=== PATIENT | female | born 1975 | race Caucasian/White ===

== ENCOUNTER 2017-02-04 09:58 | Emergency (ER) | payer MEDICARE, OTHER ==
[~2017-02-04] VITALS: Ht 152.4 cm; Wt 45.4 kg
--- NOTE | 2017-02-04 12:27 | Diagnostic Imaging Report ---
EXAMINATION: Head CT HISTORY: Epilepsy, cerebral palsy, seizure COMPARISON: None available TECHNIQUE: Multidetector axial images were obtained without contrast from the foramen magnum to the vertex . The images were reconstructed using brain and bone algorithms. Thin section brain images were reformatted into coronal and sagittal planes. Intravenous contrast: None. Motion/streaking artifact limits the evaluation of the skull base and posterior cranial fossa. FINDINGS: Parenchyma: 1. Prominent cortical/subcortical encephalomalacia in the right pre and postcentral gyri, likely sequela from remote insult such infarction, trauma or infection. 2. Nonspecific hypodensity in the juxtacortical white matter of the right superior/anterior frontal lobe without significant mass effect or midline shift. 3. No mass or hemorrhage. No CT evidence of acute territorial vascular insult. Extra-axial spaces:No abnormal density. No extra-axial fluid collections Brain volume: Generalized supra and infratentorial volume loss, more than what is expected for patient's age. Ventricles: Mild ex vacuo dilatation. No hydrocephalus. Arteries: No density suggestive of thrombus. Dural sinuses: No abnormal density. Extra-axial spaces: No abnormal density. Foramen magnum: No mass, Chiari malformation, or basilar invagination. Sella: No obvious mass. Paranasal/mastoid sinuses: Imaged portions unremarkable. Skull/Scalp: No lytic or blastic lesions. No fractures. IMPRESSION: 1. No acute intracranial hemorrhage, mass, hydrocephalus or extra axial fluid collections. 2. Nonspecific hypodensity in the right frontal lobe white matter may represent chronic gliosis versus edema, comparison to prior studies to determine stability is recommended, otherwise a brain MRI is recommended to further evaluate. 3. Cortical encephalomalacia in the left pre and postcentral gyri, likely sequela from remote insult. 4. Moderate generalized brain volume loss, more than what is expected for age. Signed by: Dr. Concepcion Ag M.D. on 02/04/2017 12:23 PM
[2017-02-04 12:39] LABS: BASOPHILS % 0.5 % (0.0-1.0); EOSINOPHILS # (AUTO) 0.2 (0.0-0.4); EOSINOPHILS % 2.1 % (0.0-6.0); HEMATOCRIT 40.6 % (34.2-44.1); HEMOGLOBIN 13.3 g/dL (12.0-16.0); LYMPHOCYTES # (AUTO) 1.9 (1.0-3.2); LYMPHOCYTES % 26.4 % (18.0-39.1); MEAN CORPUSCULAR HEMOGLOBIN 32.7 pg (28-32); MEAN CORPUSCULAR HGB CONC 32.8 g/dL (31-35); MEAN CORPUSCULAR VOLUME 99.8 fL (81-99); MONOCYTES # (AUTO) 0.6 (0.2-0.8); MONOCYTES % 8.5 % (4.4-11.3); NEUTROPHILS # (AUTO) 4.6 (2.1-6.9); NEUTROPHILS % 62.4 % (38.7-80.0); PLATELET COUNT 202 x10e3/uL (140-360); RED BLOOD COUNT 4.07 x10e6/uL (3.6-5.1); RED CELL DISTRIBUTION WIDTH 14.6 % (11.7-14.4)
[2017-02-04 13:01] LABS: ALANINE AMINOTRANSFERASE 39 IU/L (0-55); ALBUMIN/GLOBULIN RATIO 0.7 (0.8-2.0); ALKALINE PHOSPHATASE 97 IU/L (40-150); BLOOD UREA NITROGEN 24 mg/dL (7-26); BUN/CREATININE RATIO 38 (6-25); CALCIUM 8.8 mg/dL (8.4-10.2); CARBON DIOXIDE 32 mmol/L (22-29); CHLORIDE 102 mmol/L (98-107); CREATININE, SERUM 0.63 mg/dL (0.57-1.11); EST GLOMERULAR FILTRATION RATE > 60 ML/MIN (60-); GLUCOSE 67 mg/dL (74-118); SODIUM 139 mmol/L (136-145)
[2017-02-04] MEDS ORDERED: SODIUM CHLORIDE 0.9% IV SCH (14:30)
[2017-02-04] MEDS ORDERED: VALPROATE SOD IV SCH (14:30)
[2017-02-04] MEDS ORDERED: HALOPERIDOL 5 MG TAB PO ONE (15:30)
[2017-02-04] MEDS ORDERED: HALOPERIDOL LACTATE 5 MG/ML VIAL IM ONE (15:45)
[2017-02-04] MEDS ORDERED: HALOPERIDOL LACTATE 5 MG/ML VIAL ONE (15:48)
== END 2017-02-04 15:14 | disposition home or self-care (01) ==
LOC: ER 09:58
DX: G40.309 Generalized idiopathic epilepsy and epileptic syndromes, not intractable, without status epilepticus (principal); R47.01 Aphasia; F03.90 Unspecified dementia, unspecified severity, without behavioral disturbance, psychotic disturbance, mood disturbance, and anxiety; F20.9 Schizophrenia, unspecified
CPT/HCPCS: 36415; 70450; 80053; 80164; 85025; 99284; J1630

== ENCOUNTER 2017-03-05 13:01 | Observation (INO) | payer MEDICARE, OTHER ==
[~2017-03-05] VITALS: Ht 152.4 cm; Wt 40.0 kg
[2017-03-05] MEDS ORDERED: LIDOCAINE HCL 1% LOCAL INJ 20 ML VIAL INJ STA (14:18)
[2017-03-05 15:14] LABS: BASOPHILS # (AUTO) 0.1 (0.0-0.1); BASOPHILS % 0.6 % (0.0-1.0); EOSINOPHILS # (AUTO) 0.2 (0.0-0.4); EOSINOPHILS % 2.2 % (0.0-6.0); HEMATOCRIT 44.4 % (34.2-44.1); HEMOGLOBIN 13.8 g/dL (12.0-16.0); LYMPHOCYTES # (AUTO) 2.3 (1.0-3.2); LYMPHOCYTES % 22.4 % (18.0-39.1); MEAN CORPUSCULAR HEMOGLOBIN 32.1 pg (28-32); MEAN CORPUSCULAR HGB CONC 31.1 g/dL (31-35); MEAN CORPUSCULAR VOLUME 103.3 fL (81-99); MONOCYTES # (AUTO) 0.9 (0.2-0.8); NEUTROPHILS # (AUTO) 6.8 (2.1-6.9); NEUTROPHILS % 65.7 % (38.7-80.0); PLATELET COUNT 259 x10e3/uL (140-360)
[2017-03-05 15:24] LABS: ALANINE AMINOTRANSFERASE 24 IU/L (0-55); ALBUMIN 2.9 g/dL (3.5-5.0); ALBUMIN/GLOBULIN RATIO 0.5 (0.8-2.0); ALKALINE PHOSPHATASE 108 IU/L (40-150); ANION GAP 12.2 mmol/L (8-16); BLOOD UREA NITROGEN 32 mg/dL (7-26); BUN/CREATININE RATIO 46 (6-25); CALCIUM 9.3 mg/dL (8.4-10.2); CARBON DIOXIDE 29 mmol/L (22-29); CHLORIDE 108 mmol/L (98-107); CREATININE, SERUM 0.69 mg/dL (0.57-1.11); EST GLOMERULAR FILTRATION RATE > 60 ML/MIN (60-); GLUCOSE 70 mg/dL (74-118); POTASSIUM 4.2 mmol/L (3.5-5.1); SODIUM 145 mmol/L (136-145)
[2017-03-05 15:39] LABS: INR 0.97; PROTHROMBIN TIME 13.4 seconds (11.9-14.5)
[2017-03-05 15:40] LABS: PARTIAL THROMBOPLASTIN TIME 34.5 seconds (23.8-35.5)
[2017-03-05] MEDS ORDERED: SODIUM CHLORIDE FLUSH 10 ML SYR INJ PRN (15:45)
--- NOTE | 2017-03-05 16:34 | Diagnostic Imaging Report ---
PROCEDURE:X-RAY PELVIS, AP VIEW COMPARISON:None. INDICATIONS:Fall FINDINGS: Limited exam due to overlying artifact and positioning. Abnormal appearance of the bilateral pubic bones with suboptimal visualization of the superior pubic rami, therefore fracture cannot be excluded. No apparent femoral neck fracture. The sacrum is obscured by rectal contents.. CONCLUSION: Limited exam. Consider further evaluation with CT pelvis without contrast. Naman Miller M.D. Dictated by: Naman Miller M.D. on 03/05/2017 at 16:42 Electronically approved by: Naman Miller M.D. on 03/05/2017 at 16:42
--- NOTE | 2017-03-05 16:37 | Diagnostic Imaging Report ---
PROCEDURE: A single AP view of the chest. COMPARISON: None. INDICATIONS: FALL, TRAUMA FINDINGS: Lines/tubes: None. Lungs: Bilateral suboptimal inspiration. Increased density throughout the lungs bilaterally may be related to technique. Patchy density in the left lung base associated with elevation of the left hemidiaphragm suggestive of subsegmental atelectasis. Pleura: There is no pleural effusion or pneumothorax. Heart and mediastinum: The heart and the mediastinum are unremarkable. Deformity of the left lateral rib cage particularly centered at the eighth rib may reflect nondisplaced fracture. IMPRESSION: 1. Probable nondisplaced fracture of theleft lateral eighth rib. Left basilar subsegmental atelectasis may be due to patient respiration due to rib fracture in the proper clinical setting. Naman Miller M.D. Dictated by: Naman Miller M.D. on 03/05/2017 at 16:45 Electronically approved by: Naman Miller M.D. on 03/05/2017 at 16:45
--- NOTE | 2017-03-05 16:42 | Diagnostic Imaging Report ---
Exam: Head CT without contrast History: Altered mental status and fall at home Comparison studies: Head CT 02/04/2017. Technique: Axial images were obtained from the skull base to the vertex. Coronal and sagittal images reconstructed from the axial data. Intravenous contrast: None Findings: Image quality is significantly degraded due to motion artifact. Scalp: No abnormalities. Bones: No fractures, blastic or lytic lesions. Brain sulci: Prominent. Ventricles: Stable moderate dilatation of the lateral ventricles with involvement of the temporal horns. This is slightly disproportionate to degree of sulcal widening. The callosal angle is however normal and measures 115 degrees. The findings are most likely related to preferential central volume loss rather than a communicating hydrocephalus. Extra-axial spaces: No masses, no fluid collection. Parenchyma: There is stable encephalomalacia in the right medial anterior frontal lobe and right pre and postcentral gyrus. No acute large cortical infarct. No intracranial hemorrhage or mass effect. Sellar/suprasellar region: Partial empty sella. Craniocervical junction: Patent foramen magnum. No Chiari one malformation. IMPRESSION: 1. Limited examination due to significant motion artifact. 2. Despite the limitation, no gross acute intracranial abnormality. 3. Unchanged chronic encephalomalacia in right frontal lobe, right pre and postcentral gyrus may be related to prior vascular insult, trauma or infectious/inflammatory process. 4. Generalized moderate cerebral volume loss which is greater than expected for age. Preliminary report was provided by neuroradiology fellow, Dr.Thach Irma MD on 03/05/2017 4:42 PM. I have reviewed the images and agree with the findings in the preliminary report. Signed by: Dr. Fely Hutchison M.D. on 03/05/2017 7:36 PM
--- NOTE | 2017-03-05 16:47 | Diagnostic Imaging Report ---
History: Fall Comparison studies: None Technique: Axial images were obtained through the cervical region. Coronal and sagittal images reconstructed from the axial data. Intravenous contrast: None Findings: Image quality is degraded due to suboptimal positioning. Atlantoaxial articulation: Intact Alignment: Normal lordosis No scoliosis. Cervicomedullary junction: No abnormalities. Patent foramen magnum. Soft tissues: No gross abnormalities. Vertebrae: No fractures, neoplasm or infection. Incidental: Mild emphysematous changes in the lung apices and subpleural blebs. Degenerative changes: Mild multilevel cervical spine spondylosis without spinal canal stenosis. Prominent anterior osteophytes from C5 to T1. C2-C3: Posterior disc osteophyte complex without canal stenosis. C3-C4: Mild left foraminal stenosis due to facet and uncovertebral arthrosis. C4-C5: Mild right foraminal stenosis due to facet and uncovertebral arthrosis. C5-C6: Posterior disc osteophyte complex without canal stenosis. Mild right foraminal stenosis due to uncovertebral arthrosis. IMPRESSION: 1. No acute fracture or subluxation demonstrated in the cervical spine. 2. Ligament, spinal cord and or vascular abnormalities cannot be excluded on the basis of this examination. Preliminary report was provided by neuroradiology fellow, Dr.Thach Irma MD on 03/05/2017 4:47 PM. Signed by: Dr. Fely Hutchison M.D. on 03/05/2017 7:41 PM
[2017-03-05 17:38] VITALS: BP 100/70
[2017-03-05 17:39] VITALS: BP 100/70
[2017-03-05] MEDS ORDERED: BACLOFEN10 MG PEG (18:16)
[2017-03-05] MEDS ORDERED: GUAIFENESI100 MG/5 M PEG (18:16)
[2017-03-05] MEDS ORDERED: ZYPREXA5 MG PEG ×3 (18:16)
[2017-03-05] MEDS ORDERED: ACETAMINOPHEN325 M1 PEG (18:16)
[2017-03-05] MEDS ORDERED: ZOFRAN ODT4 MG PEG (18:16)
[2017-03-05] MEDS ORDERED: CLONAZEPAM0.5 MG PEG (18:16)
[2017-03-05] MEDS ORDERED: ULTRAM50 MG PEG (18:16)
[2017-03-05] MEDS ORDERED: DIVALPROEX SOD125 MG PEG (18:16)
[2017-03-05] MEDS ORDERED: LORAZEPAM1 MG PEG (18:16)
[2017-03-05] MEDS ORDERED: MIDODRINE HCL2.5 MG PO (18:16)
[2017-03-05] MEDS ORDERED: LORAZEPAM INJ 2 MG/ML VIAL IV ONE (18:30)
[2017-03-05] MEDS ORDERED: GUAIFENESIN 200 MG/10 ML UDC PEG PRN (19:00)
[2017-03-05] MEDS ORDERED: ONDANSETRON HCL 4 MG ORAL DISINTEGRATING TAB PEG PRN (19:00)
[2017-03-05] MEDS ORDERED: OLANZAPINE 5 MG TAB PEG PRN (19:00)
[2017-03-05] MEDS ORDERED: LORAZEPAM 1 MG TAB PEG PRN (19:00)
[2017-03-05] MEDS ORDERED: BACLOFEN 10 MG TAB PEG SCH (19:00)
[2017-03-05] MEDS ORDERED: ACETAMINOPHEN 325 MG/10 ML UDC PEG PRN (19:15)
--- NOTE | 2017-03-05 19:23 | Diagnostic Imaging Report ---
EXAM: CT Abdomen and Pelvis WITHOUT contrast INDICATION: Sacral hematoma COMPARISON: None. TECHNIQUE: Abdomen and Pelvis was scanned utilizing a multidetector helical scanner without the use of IV contrast. Coronal and sagittal reformations were obtained. Limitations: Significant patient motion. Additionally spray artifact from arms over abdomen. IV CONTRAST: None COMPLICATIONS: None RADIATION DOSE: Total DLP: 232 mGy*cm Estimated effective dose: (DLP x 0.015 x size factor) mSv CTDIvol has been reviewed. It is below the limits set by the Radiation Protocol Committee (RPC). FINDINGS: Abdomen: Lung Bases: Septal thickening partially visualized left lung base. Solid Organs: Calcified gallstones present. Nonenhanced images of solid organs grossly unremarkable, but poorly evaluated. Upper GI Tract: Percutaneous gastrostomy tube. No distinct small bowel obstructive changes. Vascularity: No aortic aneurysm. Lymph Nodes: Not adequately evaluated. Other: None. Pelvis: Bladder: Moderately distended. Other: Uterus/adnexa suboptimally evaluated nonenhanced CT. Colon: Moderate stool. Colon in adequately evaluated due to significant motion. Bones: Mottled irregular appearance right superior and inferior pubic mild presumed sequela of prior trauma. Prominent osteophytes acetabulum bilaterally. Soft tissues: Evaluation significantly limited due to motion and lack of IV contrast. In the soft tissues overlying the sacrum there is a 55 mm transverse x 38 mm AP x 91 mm craniocaudal fluid collection that appears to have a thickened wall. IMPRESSION: 1. 55 x 38 x 91 mm fluid collection within the soft tissues overlying the sacrum with thickened wall. While finding may correspond with hematoma per clinical history, abscess would have a similar appearance. Vertical and laboratory correlation recommended. 2. Cholelithiasis. 3. Within significant limitations of exam as detailed above, no other distinct acute intra-abdominal findings. Signed by: Dr. Willis Laird MD on 03/05/2017 7:19 PM
[2017-03-05 20:00] VITALS: BP 92/53
[2017-03-05] MEDS ORDERED: VANCOMYCIN 1GM/NS 250 ML 250 ML IV SCH (20:00)
[2017-03-05] MEDS ORDERED: SODIUM CHLORIDE 0.9% 250ML 250 ML ONE (20:15)
[2017-03-05] MEDS ORDERED: CLONAZEPAM 0.5 MG TAB PEG SCH (21:00)
[2017-03-05] MEDS ORDERED: TRAMADOL HCL 50 MG TAB PEG SCH (21:00)
[2017-03-05] MEDS ORDERED: OLANZAPINE 5 MG TAB PEG SCH (21:00)
[2017-03-05] MEDS ORDERED: VALPROATE 250MG/5ML ORAL LIQ 5ml PEG SCH (21:00)
[2017-03-05 22:27] VITALS: BP 92/53
[2017-03-06] VITALS: BP 101/61
[2017-03-06] MEDS ORDERED: MIDODRINE HCL 5 MG TABLET PO SCH (06:00)
[2017-03-06 06:40] VITALS: BP 97/62
[2017-03-06 06:47] LABS: BASOPHILS # (AUTO) 0.1 (0.0-0.1); BASOPHILS % 0.8 % (0.0-1.0); EOSINOPHILS # (AUTO) 0.3 (0.0-0.4); EOSINOPHILS % 4.4 % (0.0-6.0); HEMATOCRIT 39.1 % (34.2-44.1); LYMPHOCYTES # (AUTO) 1.8 (1.0-3.2); LYMPHOCYTES % 25.2 % (18.0-39.1); MEAN CORPUSCULAR HEMOGLOBIN 31.6 pg (28-32); MEAN CORPUSCULAR HGB CONC 30.7 g/dL (31-35); MEAN CORPUSCULAR VOLUME 102.9 fL (81-99); MONOCYTES % 14.2 % (4.4-11.3); NEUTROPHILS # (AUTO) 3.9 (2.1-6.9); NEUTROPHILS % 55.3 % (38.7-80.0); PLATELET COUNT 271 x10e3/uL (140-360); RED CELL DISTRIBUTION WIDTH 13.8 % (11.7-14.4)
[2017-03-06 07:04] LABS: INR 0.99; PROTHROMBIN TIME 13.6 seconds (11.9-14.5)
[2017-03-06 07:05] LABS: PARTIAL THROMBOPLASTIN TIME 32.9 seconds (23.8-35.5)
[2017-03-06 07:09] LABS: BLOOD UREA NITROGEN 32 mg/dL (7-26); BUN/CREATININE RATIO 50 (6-25); CALCIUM 8.6 mg/dL (8.4-10.2); CARBON DIOXIDE 29 mmol/L (22-29); CHLORIDE 109 mmol/L (98-107); CREATININE, SERUM 0.64 mg/dL (0.57-1.11); EST GLOMERULAR FILTRATION RATE > 60 ML/MIN (60-); GLUCOSE 70 mg/dL (74-118); SODIUM 145 mmol/L (136-145)
[2017-03-06 08:00] VITALS: BP 90/59
[2017-03-06] MEDS ORDERED: OLANZAPINE 5 MG TAB PEG SCH (09:00)
[2017-03-06 12:00] VITALS: BP 125/72
[2017-03-06] MEDS ORDERED: HALOPERIDOL LACTATE 5 MG/ML VIAL IV PRN (15:15)
[2017-03-06] MEDS ORDERED: HALOPERIDOL LACTATE 5 MG/ML VIAL IV ONE (15:45)
--- NOTE | 2017-03-06 15:55 | History and Physical ---
ADDENDUM She has as I said before an unusual location for a PEG tube. I talked with , the nurse practitioner who has seen the patient in the custodial. Apparently, the tube was a PEG tube and it was being used for feeding and medications. We ordered a KUB and the KUB is pending. We will start her on vancomycin 1 g IV daily, Zosyn 3.375 g IVBP q.6 h. to cover the possibility of any intra-abdominal infection, because that particular PEG tube is drainage urine. We called Dr. Tomasz Khalil, gastroenterology to check on the location of the PEG tube to see if it is in the right location. Will also consulted Dr. Gonsales, urologist because the tube is draining fluid that looks like urine. We have to make sure there is not any fistula to the bladder. We are going to wait on the KUB report. We are going to hold the transfer to a custodial until we see the location of that particularly and location of the PEG tube and then go from there. The patient has no fever so far. White blood count is normal. Job#: [id number] TANVIR
--- NOTE | 2017-03-06 16:00 | Diagnostic Imaging Report ---
PROCEDURE:X-RAY ABDOMEN - KUB COMPARISON:None. INDICATIONS:PEG TUBE PLACEMENT FINDINGS: Exam is limited by patient's altered mental status and inability to stay still. A radiopaque catheter is noted in the left abdomen, with distal tip projecting in the expected region of the stomach antrum/pylorus, likely representing PEG tube. No air-filled, nondilated loops of bowel. No acute bony abnormalities. No abdominal calcifications. CONCLUSION: PEG tube has distal tip projecting in the expected region of the stomach antrum/pylorus. Kalia Macias M.D. Dictated by: Kalia Macias M.D. on 03/06/2017 at 16:09 Electronically approved by: Kalia Macias M.D. on 03/06/2017 at 16:09
--- NOTE | 2017-03-06 16:14 | History and Physical ---
HISTORY OF PRESENT ILLNESS: A 41-year-old female detention resident with a past medical history positive for traumatic brain injury, bedridden, and she has a PEG tube. She was sent from a detention because she was having a growing mass in the back of her pelvis area and they were concerned for infection, abscess, et cetera. Incisional drainage done. Apparently she had a hematoma. Patient was started on IV vancomycin empirically. Wound cultures are still pending. REVIEW OF SYSTEMS: The patient is unable to communicate. She is very agitated. PAST MEDICAL HISTORY: Traumatic brain injury, dysphagia. SOCIAL HISTORY: She lives in a detention. We do not know if she smokes or drinks. PHYSICAL EXAMINATION HEART: Shows regular rhythm. Normal S1 and S2 sounds. LUNGS: Clear bilaterally. ABDOMEN: Soft. She has a PEG tube in place with some redness around the PEG tube. EXTREMITIES: Show contracture in upper and lower extremities. VITAL SIGNS: Blood pressure is 125/72, temperature 98.9, heart rate 102 per minute, respiratory rate is 18 per minute. We have a CBC with a white blood count 7.10, hemoglobin 12.0, hematocrit 39.1, platelet count 271,000. On the BMP: Sodium 145, potassium 4.0, chloride 109, CO2 29, BUN 32, creatinine 0.64, glucose is 70, calcium 8.6. AST is 31, ALT 24, alkaline phosphatase 108, total protein 9.0, albumin 2.9, globulin 6.1. Albumin/globulin ratio 0.5. We also had a pelvis x-ray done which is a limited exam. No other opinion on that from the radiologist. On a chest x-ray, probably nondisplaced fracture on the lateral 8th rib, passive basilar subsegmental atelectasis may be due to respiration due to rib fracture in the proper clinical setting ( ) chest x-ray. Then we have a CT of the cervical spine which showed no acute fracture or subluxation ( ) cervical spine. Ligament, spinal cord or vascular abnormalities cannot be excluded on the basis of this examination. Then we have CAT scan of the head which showed limited examination due to significant motion artefact. Despite limitation, no gross acute intracranial abnormality. Also, we had unchanged chronic encephalomalacia in the right frontal lobe, right pre- and post-central gyrus may be related to prior vascular insult, trauma, infectious or inflammatory process. Generalized moderate cerebral volume loss which is greater than expected for age. Then we have a CT of the abdomen and pelvis without contrast which showed 55 x 38+ x 91 mm fluid collection within the soft tissues underlying the sacrum with a thickened wall ( ) hematoma. Per clinical histories, abscess will have a similar appearance ( ) and laboratory correlation are recommended. She has also gallstones but no cholecystitis. No other intra-abdominal findings also. PLAN OF TREATMENT: So, patient is going to be transferred to a detention today. Dr. Lucas Treadwell, surgeon, recommended for her to be transferred to a detention. He did not see any evidence of any abscess to require drainage. We are going to start her on doxycycline 100 mg twice a day for 10 days. She was originally on vancomycin 1 g daily because of some possible cellulitis around the hematoma, and also the PEG tube had some redness most likely secondary to cellulitis. So, doxycycline will continue at least for 10 days at the detention. The rest of the medications are going to be the following: Tylenol 650 mg q.6 h. as needed. Baclofen 10 mg q.12 h. Clonazepam 0.5 mg 3 times a day. Doxycycline 100 mg twice a day for 10 days. Guaifenesin 200 mL q.6 h. as needed. Lorazepam has been discontinued. Continue with midodrine 10 mg q.8 h. for orthostatic hypotension. She is taking Zyprexa 2.5 mg q.6 h. as needed for agitation and 5 mg at bedtime and 10 mg in the morningtime. Zofran 4 mg via the PEG as needed for nausea and vomiting. Tramadol 50 mg 3 times a day as needed and ( ) mg 3 times a day. Job#: [id number] EV
--- NOTE | 2017-03-06 16:17 | Discharge Summary ---
This is a 41-year-old female who has a past medical history positive for traumatic brain injury, seizure disorder, confusion. She lives in a custodial. She has a PEG tube, also. She came to the hospital originally because of a groin mass in the pelvic area. She underwent incision and drainage of the mass. Blood came out. It looked like it was a hematoma. X-ray showed no evidence of fracture. We did a CT of the abdomen and pelvis, pelvis x-ray, cervical spine x-ray, chest x-ray. She only had a fracture of the left rib cage, but no fractures in any other areas. The patient was started empirically on vancomycin. We are going to switch her to doxycycline p.o. because of cellulitis around the PEG tube and also possible infection of the hematoma. The patient is going to be transferred to the custodial today. On the physical exam, the heart shows regular rhythm. Normal S1, S2 sounds. Lungs are clear bilaterally. Abdomen is soft. PEG tube in place. She has also a hematoma on the back of the pelvic area close to the sacral area. FINAL IMPRESSION 1. Pelvic hematoma with mild cellulitis. 2. Dysphagia. 3. Acute renal failure. 4. Percutaneous endoscopic gastrostomy tube cellulitis. 5. Traumatic brain injury. 6. Seizure disorder. 7. Agitation. PLAN OF TREATMENT: Continue current medications already dictated in my history and physical. Patient is going to be transferred back to the custodial. Dr. Lucas Treadwell saw the patient from a surgical point of view. He recommended for her to be discharged since there was no evidence of any surgical conditions. THOM CRAIG MD Job#: [id number]
--- NOTE | 2017-03-06 16:44 | Discharge Summary ---
ADDENDUM: Looking at PEG tube placement, it looks like there has been a Lloyd catheter placed instead of a PEG tube. We are going to ask the assistant sales center manager, Dr. Chilel, to replace the PEG tube. KUB has been ordered and report is pending. So, we are going to put the discharge back to the long-term on hold until the PEG tube is replaced with a size PEG tube before she goes back to the long-term. There is also some redness around the PEG tube. The patient has been started on antibiotics. THOM CRAIG MD Job#: [id number] GH
[2017-03-06] MEDS ORDERED: DOXYCYCLINE HYCLATE TABLET 100 MG TAB PO SCH (17:00)
[2017-03-06] MEDS ORDERED: PIPER-TAZ 3.375 GM 50 ML IV SCH (18:00)
--- NOTE | 2017-03-06 18:14 | Consultation ---
DATE OF CONSULTATION: GASTROENTEROLOGY CONSULTATION REASON FOR CONSULTATION: PEG malfunction. HISTORY OF PRESENT ILLNESS: Ms. Zavaleta is a 41-year-old woman who is known to me from previous occasions. She is PEG dependent. Her PEG tube was noted to be broken at the proximal region where the stop cock would be. KUB checked placement and in the anticipated region. She has chronic PEG. The existing PEG is receiving gastric contents. She does not seem to have any abdominal pain. There is some local excoriation. PAST MEDICAL HISTORY: Traumatic brain injury, dysphagia and PEG dependent. MEDICATIONS: Reviewed. Please see [facility] medication reconciliation form. ALLERGIES: REVIEWED. PLEASE SEE [facility] MEDICATION RECONCILIATION FORM. SOCIAL HISTORY: She is a intermediate resident. No known alcohol or tobacco. FAMILY HISTORY: Unknown. REVIEW OF SYSTEMS: Unable to obtain due to her mental status. PHYSICAL EXAMINATION GENERAL: She is alert, calm and nonverbal and thin. HEENT: Pupils equal, round and reactive to light. NECK: Supple. LUNGS: Clear. CARDIAC: S1 and S2. ABDOMEN: Soft. Existing PEG tube with broken stop cock with gastric contents. Some excoriation around her skin. EXTREMITIES: No clubbing or cyanosis. She has right arm contractures. PSYCH: Calm now. Agitation. NEUROLOGIC: Awake but disoriented. Nonverbal. HEM/ONC: No bruising or adenopathy. Electronic health records reviewed for laboratory and radiologic studies, as well as history. ASSESSMENT 1. Dysphagia: Percutaneous endoscopic gastrostomy dependent. 2. Intra-abdominal fluid collection already evaluated by Dr. Treadwell. 3. Baseline altered mental status and dysphagia. 4. Percutaneous endoscopic gastrostomy malfunction with broken tip. PLAN: At the bedside, the existing 18-[place] replacement type balloon tube was deflated and removed. It was inspected and found to be otherwise intact aside from broken exterior tip. A new 18-[place] balloon type replacement tube was inserted in the existing fistula and passed into the gastric lumen easily. Gastric contents were retrieved. The internal bumper was filled with 6 mL of sterile saline as per directions. There was good return. At the current time, the PEG may be used for medications and feeding. I agree with continuing abdominal binder so that it is not pulled. I have no other plans for her. Therefore, she is otherwise stable for discharge and I agree with it. I discussed with the nursing staff. Thank you very much for asking me to see Ms. Zavaleta. Any questions or concerns please do not hesitate to contact me. Job#: [id number] RI
== END 2017-03-06 18:41 ==
LOC: ER 13:01 → ERHOLD 16:39 → MED/SURG 16:44
PROVIDERS: ADMIT Internal Medicine; ATTEND Internal Medicine
DX: S30.0XXA Contusion of lower back and pelvis, initial encounter (principal); L03.818 Cellulitis of other sites; K94.23 Gastrostomy malfunction; L03.311 Cellulitis of abdominal wall; N17.9 Acute kidney failure, unspecified; S06.9X0A Unspecified intracranial injury without loss of consciousness, initial encounter; R13.10 Dysphagia, unspecified; G40.909 Epilepsy, unspecified, not intractable, without status epilepticus; R18.8 Other ascites; F20.9 Schizophrenia, unspecified; F03.90 Unspecified dementia, unspecified severity, without behavioral disturbance, psychotic disturbance, mood disturbance, and anxiety; Z74.01 Bed confinement status; X58.XXXA Exposure to other specified factors, initial encounter; Z87.820 Personal history of traumatic brain injury
CPT/HCPCS: 10140; 36415 ×2; 43760; 70450; 71010; 72125; 72170; 74000; 74176; 80048; 80053; 80202; 85025 ×2; 85610 ×2; 85730 ×2; 87071; 87186; 87205; 99285; G0378 ×2; J1630; J2060; J2543; J3370; J7050

== ENCOUNTER 2017-05-01 11:58 | Emergency (ER) | payer OTHER ==
[~2017-05-01] VITALS: Ht 152.4 cm; Wt 39.9 kg
[~2017-05-01 11:58] MED LIST: ACETAMINOPHEN325 M1 PEG; BACLOFEN10 MG PEG; CLONAZEPAM0.5 MG PEG; DIVALPROEX SOD125 MG PEG; GUAIFENESI100 MG/5 M PEG; LORAZEPAM1 MG PEG; MIDODRINE HCL2.5 MG PO; ULTRAM50 MG PEG; ZOFRAN ODT4 MG PEG; ZYPREXA5 MG PEG
--- OUTSIDE RECORDS SUMMARY | 2017-05-01 12:01 | XMS REPORT ---
[facility] Address Unknown Phone Unavailable Care Team Providers Care Line Runner Name Role Phone THOM CRAIG Unavailable Unavailable KAYLA FRANCISCO Unavailable Unavailable SHAKA SWEENEY Unavailable Unavailable Problems This patient has no known problems. Allergies, Adverse Reactions, Alerts This patient has no known allergies or adverse reactions. Medications This patient has no known medications. Results Test Description Test Time Test Comments Text Results Atomic Results Result Comments ABDOMEN-1VIEW (KUB) [place] [address] Patient Name: MANJIT SHEFFIELD MR #: [id number] : 1975 Age/Sex: 41/F Req #: [id number] Adm Physician: THOM CRAIG MD Ordered by: THOM CRAIG MD Report #: [id number] Location: MED/SURG Room/Bed: [facility] Procedure: [id number] DX/ABDOMEN-1VIEW (KUB) Exam Date: 03/06/17 Exam Time: 1320 REPORT STATUS: Signed PROCEDURE: X-RAY ABDOMEN - KUB COMPARISON: None. INDICATIONS : PEG TUBE PLACEMENT FINDINGS: Exam is limited by patient's altered mental status and inability to stay still. A radiopaque catheter is noted in the left abdomen, with distal tip projecting in the expected region of the stomach antrum/pylorus, likely representing PEG tube. No air-filled , nondilated loops of bowel. No acute bony abnormalities. No abdominal calcifications. CONCLUSION: PEG tube has distal tip projecting in the expected region of the stomach antrum/pylorus. Kalia Farley M.D. Dictated by: Kalia Farley M.D. on 03/06/2017 at 16:09 Electronically approved by: Kalia Farley M.D. on 03/06/2017 at 16:09 Dictated By: KALIA FARLEY MD 08 Transcribed By: NILS on 03/06/17 160 COPY TO: THOM CRAIG MD CT ABDOMEN/PELVIS WO [place] [address] Patient Name: MANJIT SHEFFIELD MR #: [id number] : 1975 Age/Sex: 41/F Req #: [id number] Adm Physician: THOM RCAIG MD Ordered by: THOM CRAIG MD Report #: [id number] Location: MED/SURG Room/Bed: [facility] Procedure: [id number] CT/CT ABDOMEN/PELVIS WO Exam Date: 03/05/17 Exam Time: 1850 REPORT STATUS: Signed EXAM: CT Abdomen and Pelvis WITHOUT contrast INDICATION: Sacral hematoma COMPARISON: None. TECHNIQUE: Abdomen and Pelvis was scanned utilizing a multidetector helical scanner without the use of IV contrast. Coronal and sagittal reformations were obtained. Limitations: Significant patient motion. Additionally spray artifact from arms over abdomen. IV CONTRAST: None COMPLICATIONS : None RADIATION DOSE: Total DLP: 232 mGy*cm Estimated effective dose: (DLP x 0.015 x size factor) mSv CTDIvol has been reviewed. It is below the limits set by the Radiation Protocol Committee (RPC) . FINDINGS: Abdomen: Lung Bases: Septal thickening partially visualized left lung base. Solid Organs: Calcified gallstones present. Nonenhanced images of solid organs grossly unremarkable, but poorly evaluated. Upper GI Tract: Percutaneous gastrostomy tube. No distinct small bowel obstructive changes. Vascularity: No aortic aneurysm. Lymph Nodes: Not adequately evaluated. Other: None. Pelvis: Bladder: Moderately distended. Other: Uterus/adnexa suboptimally evaluated nonenhanced CT. Colon: Moderate stool. Colon in adequately evaluated due to significant motion. Bones: Mottled irregular appearance right superior and inferior pubic mild presumed sequela of prior trauma. Prominent osteophytes acetabulum bilaterally. Soft tissues: Evaluation significantly limited due to motion and lack of IV contrast. In the soft tissues overlying the sacrum there is a 55 mm transverse x 38 mm AP x 91 mm craniocaudal fluid collection that appears to have a thickened wall. IMPRESSION: 1. 55 x 38 x 91 mm fluid collection within the soft tissues overlying the sacrum with thickened wall. While finding may correspond with hematoma per clinical history, abscess would have a similar appearance. Vertical and laboratory correlation recommended. 2. Cholelithiasis. 3. Within significant limitations of exam as detailed above, no other distinct acute intra-abdominal findings. Signed by: Dr. Ibeth Laird MD on 03/05/2017 7:19 PM Dictated By: IBETH LAIRD MD 18 Transcribed By: MADHAV on 1918 COPY TO: THOM CRAIG MD CHEST [facility] (PORTABLE) [place] [address] Patient Name: MANJIT SHEFFIELD MR #: [id number] : 1975 Age/Sex: 41/F Req #: [id number] Adm Physician: Ordered by: JANNA ESPINOZA NP Report #: [id number] Location: ER Room/Bed: Procedure: [id number] DX/CHEST SINGLE (PORTABLE) Exam Date: 03/05/17 Exam Time: 1540 REPORT STATUS: Signed PROCEDURE: A single AP view of the chest. COMPARISON: None. INDICATIONS: FALL, TRAUMA FINDINGS: Lines/tubes: None. Lungs: Bilateral suboptimal inspiration. Increased density throughout the lungs bilaterally may be related to technique. Patchy density in the left lung base associated with elevation of the left hemidiaphragm suggestive of subsegmental atelectasis. Pleura: There is no pleural effusion or pneumothorax. Heart and mediastinum: The heart and the mediastinum are unremarkable. Deformity of the left lateral rib cage particularly centered at the eighth rib may reflect nondisplaced fracture. IMPRESSION: 1. Probable nondisplaced fracture of theleft lateral eighth rib. Left basilar subsegmental atelectasis may be due to patient respiration due to rib fracture in the proper clinical setting. Naman Adamson M.D. Dictated by: Naman Adamson M.D. on 03/05/2017 at 16:45 Electronically approved by: Naman Adamson M.D. on 03/05/2017 at 16: 45 Dictated By: MARIMAR ADAMSON MD, MD 44 Transcribed By: NILS on 03/05/171644 COPY TO: JANNA ESPINOZA NP CT BRAIN WO [place] [address] Patient Name: MANJIT SHEFFIELD MR #: [id number] : 1975 Age/Sex: 41/F Req #: [id number] Adm Physician: THOM CRAIG MD Ordered by: JANNA ESPINOZA NP Report #: [id number] Location: MED/SURG Room/Bed: [facility] ____ Procedure: [id number] CT/CT BRAIN WO Exam Date: 03/05/17 Exam Time: 1540 REPORT STATUS: Signed Exam: Head CT without contrast History: Altered mental status and fall at home Comparison studies: Head CT 02/04/2017. Technique: Axial images were obtained from the skull base to the vertex. Coronal and sagittal images reconstructed from the axial data. Intravenous contrast: None Findings: Image quality is significantly degraded due to motion artifact. Scalp: No abnormalities. Bones: No fractures, blastic or lytic lesions. Brain sulci: Prominent. Ventricles: Stable moderate dilatation of the lateral ventricles with involvement of the temporal horns. This is slightly disproportionate to degree of sulcal widening. The callosal angle is however normal and measures 115 degrees. The findings are most likely related to preferential central volume loss rather than a communicating hydrocephalus. Extra-axial spaces: No masses, no fluid collection. Parenchyma: There is stable encephalomalacia in the right medial anterior frontal lobe and right pre and postcentral gyrus. No acute large cortical infarct. No intracranial hemorrhage or mass effect. Sellar/suprasellar region: Partial empty sella. Craniocervical junction: Patent foramen magnum. No Chiari one malformation. IMPRESSION: 1. Limited examination due to significant motion artifact. 2. Despite the limitation, no gross acute intracranial abnormality. 3. Unchanged chronic encephalomalacia in right frontal lobe, right pre and postcentral gyrus may be related to prior vascular insult, trauma or infectious/inflammatory process. 4. Generalized moderate cerebral volume loss which is greater than expected for age. Preliminary report was provided by neuroradiology fellow, Dr.Thach Irma MD on 03/05/2017 4:42 PM. I have reviewed the images and agree with the findings in the preliminary report. Signed by: Dr. Fely Hutchison M.D. on 03/05/2017 7:36 PM Dictated By: FELY HUTCHISON MD 35 Transcribed By: MADHAV on 03/05 COPY TO: JANNA ESPINOZA NP CT CERVICAL SPINE WO [place] [address] Patient Name: MANJIT SHEFFIELD MR #: [id number] : 1975 Age/Sex: 41/F Req #: [id number] Adm Physician: THOM CRAIG MD Ordered by: JANNA ESPINOZA NP Report #: [id number] Location: MED/SURG Room/Bed: [facility] Procedure: [id number] CT/CT CERVICAL SPINE WO Exam Date: 03/05/17 Exam Time: 1540 REPORT STATUS: Signed History: Fall Comparison studies: None Technique: Axial images were obtained through the cervical region. Coronal and sagittal images reconstructed from the axial data. Intravenous contrast: None Findings: Image quality is degraded due to suboptimal positioning. Atlantoaxial articulation: Intact Alignment: Normal lordosis No scoliosis. Cervicomedullary junction: No abnormalities. Patent foramen magnum. Soft tissues: No gross abnormalities. Vertebrae: No fractures, neoplasm or infection. Incidental: Mild emphysematous changes in the lung apices and subpleural blebs. Degenerative changes: Mild multilevel cervical spine spondylosis without spinal canal stenosis. Prominent anterior osteophytes from C5 to T1. C2-C3: Posterior disc osteophyte complex without canal stenosis. C3-C4: Mild left foraminal stenosis due to facet and uncovertebral arthrosis. C4-C5: Mild right foraminal stenosis due to facet and uncovertebral arthrosis. C5-C6: Posterior disc osteophyte complex without canal stenosis. Mild right foraminal stenosis due to uncovertebral arthrosis. IMPRESSION: 1. No acute fracture or subluxation demonstrated in the cervical spine. 2. Ligament, spinal cord and or vascular abnormalities cannot be excluded on the basis of this examination. Preliminary report was provided by neuroradiology fellow, Dr.Thach Irma MD on 03/05/2017 4:47 PM. Signed by: Dr. Fely Hutchison M.D. on 03/05/2017 7:41 PM Dictated By: FELY HUTCHISON MD 40 Transcribed By: MADHAV on 03/05/171940 COPY TO: JANNA ESPNIOZA [employer] PELVIS AP 1-2 VIEWS [place] [address] Patient Name: MANJIT SHEFFIELD MR #: [id number] : 1975 Age/Sex: 41/F Req #: [id number] [facility] Physician: Ordered by: JANNA ESPINOZA [employer]NA[employer] Report #: [id number] Location: ER Room/Bed: Procedure: [id number] DX/PELVIS AP 1-2 VIEWS Exam Date: 03/05/17 Exam Time: 1540 REPORT STATUS: Signed PROCEDURE: X-RAY PELVIS, AP VIEW COMPARISON: None. INDICATIONS: Fall FINDINGS: Limited exam due to overlying artifact and positioning. Abnormal appearance of the bilateral pubic bones with suboptimal visualization of the superior pubic rami, therefore fracture cannot be excluded. No apparent femoral neck fracture. The sacrum is obscured by rectal contents.. CONCLUSION: Limited exam. Consider further evaluation with CT pelvis without contrast. Naman Adamson M.D. Dictated by: Naman Adamson M.D. on 03/05/2017 at 16:42 Electronically approved by : Naman Adamson M.D. on 03/05/2017 at 16:42 Dictated By: MARIMAR ADAMSON MD, MD 41 COPY TO: JANNA ESPINOZA NP CT BRAIN WO [place] [address] Patient Name: MANJIT SHEFFIELD MR #: [id number] : 1975 Age/Sex: 41/F Req #: [id number] Adm Physician: Ordered by: KAYLA FRANCISCO MD Report #: [id number] Location: ER Room/Bed: Procedure: [id number] CT/CT BRAIN WO Exam Date: 02/04/17 Exam Time: 1200 REPORT STATUS: Signed EXAMINATION: Head CT HISTORY: Epilepsy , cerebral palsy, seizure COMPARISON: None available TECHNIQUE: Multidetector axial images were obtained without contrast from the foramen magnum to the vertex . The images were reconstructed using brain and bone algorithms. Thin section brain images were reformatted into coronal and sagittal planes. Intravenous contrast: None. Motion/streaking artifact limits the evaluation of the skull base and posterior cranial fossa. FINDINGS: Parenchyma: 1. Prominent cortical/subcortical encephalomalacia in the right pre and postcentral gyri, likely sequela from remote insult such infarction, trauma or infection. 2. Nonspecific hypodensity in the juxtacortical white matter of the right superior/anterior frontal lobe without significant mass effect or midline shift. 3. No mass or hemorrhage. No CT evidence of acute territorial vascular insult. Extra-axial spaces:No abnormal density. No extra-axial fluid collections Brain volume: Generalized supra and infratentorial volume loss, more than what is expected for patient's age. Ventricles: Mild ex vacuo dilatation. No hydrocephalus. Arteries: No density suggestive of thrombus. Dural sinuses: No abnormal density. Extra-axial spaces : No abnormal density. Foramen magnum: No mass, Chiari malformation, or basilar invagination. Sella: No obvious mass. Paranasal/ mastoid sinuses: Imaged portions unremarkable. Skull/Scalp: No lytic or blastic lesions. No fractures. IMPRESSION: 1. No acute intracranial hemorrhage, mass, hydrocephalus or extra axial fluid collections. 2. Nonspecific hypodensity in the right frontal lobe white matter may represent chronic gliosis versus edema, comparison to prior studies to determine stability is recommended, otherwise a brain MRI is recommended to further evaluate. 3. Cortical encephalomalacia in the left pre and postcentral gyri, likely sequela from remote insult. 4. Moderate generalized brain volume loss, more than what is expected for age. Signed by: Dr. Tamia Ag M.D. on 02/04/2017 12:23 PM Dictated By: TAMIA AG MD 1223 Transcribed By: MADHAV on 02/04/17 1223 COPY TO: KAYLA FRANCISCO MD ABDOMEN-[facility] ([place] [address] Patient Name: MANJIT SHEFFIELD MR #: [id number] : 1975 Age/Sex: 40/F Req #: [id number] Adm Physician: Ordered by: JANNA ESPINOZA [employer]SE [employer] MANAGER Report #: [id number] Location: ER Room/Bed: Procedure: [id number] DX/ABDOMEN-1VIEW (KUB) Exam Date: 10/23/16 Exam Time: 1345 REPORT STATUS: Signed PROCEDURE: X-RAY ABDOMEN - KUB COMPARISON: KUB 10/22/2016 INDICATIONS: PULLED OUT G -TUBE/INSERTED NEW G-TUBE FINDINGS: 2 films were acquired. One film has motion artifact and is suboptimal. Positive oral contrast in the stomach. Additional positive oral contrast in the small bowel and colon related to previous positive oral contrast administration. G-tube appears to be in place within the stomach. There are no dilated loops of bowel to suggest obstruction. There are no masses or abnormal calcifications. There is no evidence of free air. No acute osseous abnormalities are present. CONCLUSION: Positive oral contrast in the stomach without evidence of leak. G-tube appears to be in place. Dictated by: Zhang Sanchez M.D. on 10/23/2016 at 14:30 Electronically approved by: Zhang Sanchez M.D. on 10/23/2016 at 14:30 Dictated By: ZHANG SANCHEZ MD 1430 Transcribed By: NILS on 10/23/16 1430 COPY TO: JANNA ESPINOZA NP ABDOMEN-1VIEW (KUB) [place] [address] Patient Name: MANJIT SHEFFIELD MR #: [id number] : 1975 Age/Sex: 40/F Req #: [id number] Adm Physician: Ordered by: KAYLA FRANCISCO MD Report #: [id number] Location: ER Room/Bed: Procedure: DX/ABDOMEN-1VIEW (KUB) Exam Date: Exam Time: REPORT STATUS: Signed PROCEDURE: X-RAY ABDOMEN - KUB COMPARISON: None. INDICATIONS: PEG TUBE PLACEMENT FINDINGS: Gastrostomy is present with the balloon tip of the catheter projecting over the expected region of the distal gastric body. Contrast opacification of the stomach lumen is noted. Contrast is noted within the proximal duodenum. No extravasation of contrast. There is a non- obstructed bowel-gas pattern. There are no calcifications projected over the renal shadows, expected course of the ureters or bladder. There are no acute osseous abnormalities. The lung bases are clear. CONCLUSION: No acute radiographic abnormality. Dictated by: Jose Epps M.D. on 2016 at 10:42 Electronically approved by: Jose Epps M.D. on 2016 at 10:42 Dictated By: JOSE EPPS MD 1042 Transcribed By: NILS on 10/22/16 1042 COPY TO: KAYLA FRANCISCO MD
[2017-05-01 12:51] LABS: BASOPHILS % 0.4 % (0.0-1.0); EOSINOPHILS # (AUTO) 0.2 (0.0-0.4); EOSINOPHILS % 2.4 % (0.0-6.0); HEMOGLOBIN 13.7 g/dL (12.0-16.0); LYMPHOCYTES # (AUTO) 1.7 (1.0-3.2); LYMPHOCYTES % 18.4 % (18.0-39.1); MEAN CORPUSCULAR HEMOGLOBIN 30.7 pg (28-32); MEAN CORPUSCULAR HGB CONC 32.6 g/dL (31-35); MEAN CORPUSCULAR VOLUME 94.2 fL (81-99); MONOCYTES # (AUTO) 0.9 (0.2-0.8); MONOCYTES % 9.2 % (4.4-11.3); NEUTROPHILS # (AUTO) 6.5 (2.1-6.9); NEUTROPHILS % 69.3 % (38.7-80.0); PLATELET COUNT 181 x10e3/uL (140-360); RED BLOOD COUNT 4.46 x10e6/uL (3.6-5.1); RED CELL DISTRIBUTION WIDTH 14.1 % (11.7-14.4)
[2017-05-01 13:03] LABS: ALANINE AMINOTRANSFERASE 26 IU/L (0-55); ALBUMIN 3.1 g/dL (3.5-5.0); ALBUMIN/GLOBULIN RATIO 0.6 (0.8-2.0); ALKALINE PHOSPHATASE 102 IU/L (40-150); ANION GAP 15.1 mmol/L (8-16); BLOOD UREA NITROGEN 18 mg/dL (7-26); BUN/CREATININE RATIO 27 (6-25); CALCIUM 9.4 mg/dL (8.4-10.2); CARBON DIOXIDE 30 mmol/L (22-29); CHLORIDE 94 mmol/L (98-107); CREATININE, SERUM 0.66 mg/dL (0.57-1.11); EST GLOMERULAR FILTRATION RATE > 60 ML/MIN (60-); GLUCOSE 76 mg/dL (74-118); POTASSIUM 4.1 mmol/L (3.5-5.1); SODIUM 135 mmol/L (136-145)
[2017-05-01 14:08] LABS: BILIRUBIN,URINE NEGATIVE (NEGATIVE); CLARITY,URINE CLEAR (CLEAR); COLOR,URINE YELLOW (YELLOW); KETONES,URINE NEGATIVE (NEGATIVE); LEUKOCYTE ESTERASE ,URINE TRACE (NEGATIVE); NITRITE,URINE NEGATIVE (NEGATIVE); PROTEIN,URINE DIPSTICK NEGATIVE (NEGATIVE); URINE UROBILINOGEN 0.2 mg/dL (0.2 - 1)
[2017-05-01 14:31] LABS: EPITHELIAL CELLS,URINE FEW /LPF; WBC,URINE (MAN) 0-5 /HPF (0-5)
[2017-05-01 15:31] VITALS: BP 87/69
== END 2017-05-01 16:11 ==
LOC: ER 11:58
DX: N30.00 Acute cystitis without hematuria (principal)
CPT/HCPCS: 36415; 80053; 81001; 85025; 99284